=== PATIENT | female | born 1980 | race Caucasian/White ===

== ENCOUNTER 2021-08-28 20:28 | Emergency (ER) | payer OTHER ==
[~2021-08-28 20:28] MED LIST: BACLOFEN 10MG T10 MG PO; BUSPIRONE HCL15 MG PO; LISINOPRIL-HCT1 EACH PO; MACROBID100 MG PO; NAPROXEN500 MG PO; NEURONTIN300 MG PO; PRILOSEC20 MG PO; TRAZODONE HCL100 MG PO; ZOFRAN4 MG PO
[2021-08-28 21:01] LABS: BASOPHIL 0.3 % (0-2); EOSINOPHIL 0.9 % (0-5); HCT 40.5 % (37.0-47.0); HGB 12.9 g/dl (12.5-16.0); LYMPHOCYTE 31.6 % (15-48); MCH 27.4 pg (25.0-31.0); MCHC 31.9 g/dL (32.0-36.0); MONOCYTE 5.4 % (0-12); MPV 10.3 fL (6.0-9.5); NEUTROPHIL 61.6 % (41-80); NRBC 0; PLT 282 K/uL (150-400); RBC 4.71 M/uL (4.20-5.40); RDW 14.2 % (11.5-14.0); WBC 11.6 K/uL (4.0-10.5)
[2021-08-28 21:02] LABS: PROTHROMBIN TIME 12.6 SECONDS (11.8-13.4); PTT 28.2 SECONDS (24.4-34.7)
[2021-08-28 21:20] LABS: ALBUMIN 4.1 g/dL (3.4-5.0); BILIRUBIN - TOTAL 0.3 mg/dL (0.2-1.0); BUN/CREAT RATIO (CALC) 19.7 RATIO; CREATININE 0.66 mg/dL (0.51-0.95); GLOBULIN (CALCULATION) 3.6 g/dL; POTASSIUM 3.7 mmol/L (3.5-5.1); TOTAL PROTEIN 7.7 g/dL (6.4-8.2)
[2021-08-28 21:45] LABS: AMPHETAMINES NEGATIVE (NEGATIVE); BARBITURATES NEGATIVE (NEGATIVE); BILIRUBIN NEGATIVE (NEGATIVE); BLOOD TRACE-INTACT Ery/uL (NEGATIVE); CLARITY CLEAR (CLEAR); COLOR YELLOW (YELLOW); ECSTASY (MDMA) NEGATIVE (NEGATIVE); GLUCOSE (U) NORMAL (NORMAL); LEUKOCYTES 3+ Leu/uL (NEGATIVE); MARIJUANA (THC) NEGATIVE (NEGATIVE); METHADONE NEGATIVE (NEGATIVE); NITRITE NEGATIVE (NEGATIVE); OPIATES NEGATIVE (NEGATIVE); OXYCODONE NEGATIVE (NEGATIVE); PROTEIN NEGATIVE (NEGATIVE); SPECIFIC GRAVITY 1.025 (1.001-1.030); UROBILINOGEN 0.2 mg/dL (0.2-1.0)
[2021-08-28 21:50] LABS: URINARY WBC TNTC
[2021-08-28 21:51] LABS: BACTERIA TRACE
[2021-08-28] MEDS ORDERED: BACTRIM DS TAB1 EACH PO (23:44)
[2021-08-28] MEDS ORDERED: ZOVIRAX800 MG PO (23:44)
[2021-08-28] MEDS ORDERED: PREDNISONE 10MG10 MG PO (23:44)
== END 2021-08-29 00:30 | disposition home or self-care (01) ==
LOC: FER 20:28
PROVIDERS: Emergency Medicine Emergency Medical Services
DX: G51.0 Bell's palsy (principal); N39.0 Urinary tract infection, site not specified; F17.210 Nicotine dependence, cigarettes, uncomplicated; Z88.6 Allergy status to analgesic agent; Z91.040 Latex allergy status
CPT/HCPCS: 36415; 70450; 71045; 80053; 80305; 81001; 82550; 84484; 85025; 85610; 85730; 93005; J1100; J1885; J7030; U0002